=== PATIENT | male | born 1960 | race Caucasian/White ===

== ENCOUNTER 2018-09-14 11:22 | Emergency (ER) | payer BC ==
[~2018-09-14] VITALS: Ht 172.7 cm; Wt 95.0 kg
[2018-09-14] MEDS ORDERED: ATORVASTATIN CA40 MG PO (11:31)
[2018-09-14] MEDS ORDERED: ZOLOFT50 MG PO (11:32)
[2018-09-14] MEDS ORDERED: MEDROL DOSPAK21 TA1 PO (12:38)
[2018-09-14] MEDS ORDERED: ZOFRAN4 MG PO (12:38)
[2018-09-14] MEDS ORDERED: HYDROCODON-ACE1 EAC7 PO (12:38)
[2018-09-14 13:01] VITALS: BP 130/87
--- NOTE | 2018-09-14 16:34 | EKG ---
[place] [address] ELECTROCARDIOGRAM REPORT Name: WILEY MENDIETATHEODORE Fang Room: [facility]#: [id number] Admission: 09/14/18 Attend Phys: Discharge: 09/14/18 Date of : 58 Report #: [id number] THIS REPORT FOR: //name// [facility] ED Test Date: 2018-09-14 Test Time: 11:57:28 Pat Name: ÁNGEL MNEDIETA Department: Room: Gender: M [employer]ing Worker: Bethel LOZADA : 1960 Requested By: Ever Friedman Order Number: [id number] MD: Akash Renee Measurements Intervals [place] Rate: 53 P: 28 [place]: 162 QRS: -8 QRSD: 102 T: 18 QT: 434 QTc: 408 Interpretive Statements Sinus rhythm Left ventricular hypertrophy No previous ECG available for comparison Electronically Signed On 09-14-2018 16:33:48 CDT by Akash Renee [email or web address] <ELECTRONICALLY SIGNED> By: Akash Renee MD, [facility] 09/14/18 [id number] [id number] Aksah Renee MD, FACC /EPI
== END 2018-09-14 13:02 | disposition home or self-care (01) ==
LOC: M.ERS 11:22
DX: S46.812A Strain of other muscles, fascia and tendons at shoulder and upper arm level, left arm, initial encounter (principal); I10 Essential (primary) hypertension; Z87.442 Personal history of urinary calculi; Z88.5 Allergy status to narcotic agent; X58.XXXA Exposure to other specified factors, initial encounter; Y93.89 Activity, other specified; Y92.89 Other specified places as the place of occurrence of the external cause; Y99.8 Other external cause status